=== PATIENT | male | born 1970 | race African-American/Black ===

== ENCOUNTER 2024-09-24 14:11 | Emergency (ER) | payer OTHER ==
[2024-09-24 14:16] VITALS: BP 184/96; PULSE 75; RESP 18; TEMP 97.6; BMI 28.8
[2024-09-24] MEDS ORDERED: DIPHTH,PERTUSS(ACELL),TET 0.5 ML DISP.SYRIN IM ONE (15:16)
[2024-09-24] MEDS: DIPHTH,PERTUSS(ACELL),TET 0.5 ML DISP.SYRIN IM ONE (15:22)
== END 2024-09-24 15:25 | disposition home or self-care (01) ==
LOC: JERFT 14:11
PROC: 0XQWXZZ Repair Left Little Finger, External Approach (ICD-10-PCS; principal; 2024-09-24)
PROC: 3E0234Z Introduction of Serum, Toxoid and Vaccine into Muscle, Percutaneous Approach (ICD-10-PCS; 2024-09-24)
DX: S61.217A Laceration without foreign body of left little finger without damage to nail, initial encounter (principal); W26.0XXA Contact with knife, initial encounter; Y92.019 Unspecified place in single-family (private) house as the place of occurrence of the external cause; Z23 Encounter for immunization
CPT/HCPCS: 90715; 99284-25